=== PATIENT | male | born 1975 | race Caucasian/White ===

== ENCOUNTER 2017-06-11 16:14 | Inpatient (IN) | payer OTHER ==
[~2017-06-11] VITALS: Ht 177.8 cm; Wt 84.8 kg
[2017-06-11 16:26] VITALS: BP 144/79
--- NOTE | 2017-06-11 16:30 | NUR ---
PT AA&OX4 WITH EVEN AND STEADY GAIT; RR EVEN AND UNLABORED AT THIS TIME; PT TO LOBBY AWAITING OPEN BED.
[2017-06-11 17:03] LABS: BASOPHILS # (AUTO) 0.2 K/uL (0.00-0.22); BASOPHILS % (AUTO) 2.4 % (0.0-2.0); EOSINOPHILS # (AUTO) 0.1 K/uL (0-0.4); HEMATOCRIT 44.9 % (36-52); HEMOGLOBIN 14.9 g/dL (12.0-18.0); LYMPHOCYTES # (AUTO) 1.3 K/uL (2.0-11.5); LYMPHOCYTES % (AUTO) 15.2 % (20.5-51.1); MEAN CORPUSCULAR HEMOGLOBIN 29 pg (27-31); MEAN CORPUSCULAR HGB CONC 33 g/dL (33-37); MEAN CORPUSCULAR VOLUME 88 fL (80-94); MONOCYTES # (AUTO) 0.7 K/uL (0.8-1.0); MONOCYTES % (AUTO) 8.1 % (1.7-9.3); NEUTROPHILS % (AUTO) 73.3 % (42.2-75.2); PLATELET COUNT (AUTO) 265 K/uL (140-450); RED BLOOD CELL COUNT(AUTO) 5.11 MIL/uL (4.20-6.10); RED CELL DISTRIBUTION WIDTH 12.3 % (11.6-13.7); WHITE BLOOD COUNT (AUTO) 8.3 K/uL (4.8-10.8)
[2017-06-11 17:18] LABS: CREATININE 1.1 mg/dL (0.7-1.3)
[2017-06-11 17:23] LABS: ALBUMIN 4.1 g/dL (3.4-5.0); TOTAL BILIRUBIN 0.5 mg/dL (0.0-1.0)
--- NOTE | 2017-06-11 17:30 | NUR ---
PT TAKEN TO BED 2.
--- NOTE | 2017-06-11 17:45 | NUR ---
41m bib with c/o mild sob with chest pain since 1800 last night. Chest pain is desribed as 3/10 on pain scale, tightness, intermittent, non provoked, and "at times" radiates to left upper arm. Pt sts cp and sob began after running 3 mile run. Pt denies any nausea, fever, or cough. Pt is aox4 with steady gait. RR are even and unlabored. Pt positioned to comfort, bed down. NAD. Awaiting radiology results. Awaiting er md primary eval. Will continue to monitor.
[2017-06-11] MEDS ORDERED: ASPIRIN 81 MG TAB.CHEW PO ONE (18:10)
[2017-06-11] MEDS ORDERED: NITROGLYCERIN 0.4 MG TAB SL ONE (18:10)
[2017-06-11] MEDS: NACL 0.9% 1,000 ML IV SCH (18:22)
[2017-06-11] MEDS ORDERED: NITROGLYCERIN 0.4 MG TAB SL PRN (18:25)
[2017-06-11] MEDS ORDERED: ACETAMINOPHEN 325 MG TAB PO PRN (18:25)
[2017-06-11] MEDS ORDERED: HYDROcodone/APAP 7.5/325 MG 1 TAB PO PRN (18:25)
[2017-06-11] MEDS ORDERED: ONDANSETRON 4 MG/2 ML VIAL IVP PRN (18:25)
--- NOTE | 2017-06-11 18:50 | NUR ---
Patient will be admitted to care of [facility]. Admited to Tele. Will go to room 106b. Belongings list completed. Bedside report to Maria G KABA.
[2017-06-11 18:58] LABS: PROTHROMBIN TIME 10.4 secs (10.8-13.4)
[2017-06-11 19:04] LABS: APPEARANCE,URINE CLEAR (CLEAR); BILIRUBIN,URINE NEGATIVE (NEGATIVE); BLOOD, URINE NEGATIVE (NEGATIVE); COLOR,URINE YELLOW (YELLOW); LEUKOCYTE ESTERASE ,URINE NEGATIVE (NEGATIVE); NITRITE, URINE NEGATIVE (NEGATIVE); PH,URINE 5.5 (5.0-9.0); UGLUCOSE NEGATIVE (NEGATIVE)
[2017-06-11 19:10] LABS: CHOL/HDL RATIO 3.3 (1-4.5); FREE T4 (FREE THYROXINE) 0.7 ng/dL (0.76-1.46); THYROID STIMULATING HORMONE 1.8 uIU/mL (0.34-3.74)
[2017-06-11 19:30] VITALS: BP 121/71
--- NOTE | 2017-06-11 19:30 | NUR ---
PATIENT REPORT RECEIVED FROM MORNING NURSE AT BEDSIDE. PATIENT IS AWAKE, ALERT AND ORIENTED. NO SIGNS AND SYMPTOMS OF DISTRESS NOTED. NO COMPLAINTS OF PAIN AT THIS TIME. PATIENT'S AT BEDSIDE. PATIENT IS ON ROOM AIR. NO SOB NOTED. SKIN IS INTACT. IV SITE NOTED ON LEFT FOREARM. PLAN OF CARE DISCUSSED WITH PATIENT. PATIENT VERBALIZED UNDERSTANDING. BED IN LOWEST POSITION, SIDE RAILS UP AND CALL LIGHT WITHIN REACH. WILL CONTINUE TO MONITOR.
--- NOTE | 2017-06-11 19:35 | NUR ---
PATIENT SEEN BY DR. CARNES. PATIENT'S PRESENT
[2017-06-11] MEDS ORDERED: ALBUTEROL SULFATE/IPRATROPIU 3 ML SOL IH PRN (19:55)
[2017-06-11] MEDS ORDERED: ATORVASTATIN 20 MG TAB PO SCH (21:00)
[2017-06-11] MEDS: DOCUSATE SODIUM 100 MG GELCAP PO SCH (21:00)
[2017-06-11] MEDS: METOPROLOL 25 MG TAB PO SCH (21:13)
--- NOTE | 2017-06-11 21:30 | NUR ---
ADMINISTERED MEDICATIONS ORDERED. GAVE EDUCATION ON SIDE EFFECTS AND INDICATIONS OF MEDICATIONS. PATIENT VERBALIZED UNDERSTANDING
--- NOTE | 2017-06-11 22:00 | NUR ---
CHECKED ON PATIENT. PATIENT IS RESTING IN BED ON HIS PHONE. NO SYMPTOMS OF DISTRESS NOTED. WILL CONTINUE TO MONITOR.
[2017-06-12] VITALS: BP 106/65
--- NOTE | 2017-06-12 | NUR ---
PATIENT AMBULATED TO RESTROOM. PATIENT STEADY. NO SOB NOTED. NO COMPLAINTS OF DIZZINESS AT THIS TIME.
[2017-06-12] MEDS ORDERED: INFLUENZA VIRUS VACCINE QUAD 0.5 ML SYR IMVAC PRN (01:45)
--- NOTE | 2017-06-12 02:00 | NUR ---
CHECKED ON PATIENT. PATIENT IS ASLEEP. NO SIGNS AND SYMPTOMS OF DISTRESS NOTED. BREATHING EVEN AND UNLABORED. BED IN LOWEST CONDITION, SIDE RAILS UP AND CALL LIGHT WITHIN REACH. WILL CONTINUE TO MONITOR.
[2017-06-12 03:09] LABS: HEMATOCRIT 42.3 % (36-52); HEMOGLOBIN 13.9 g/dL (12.0-18.0); MEAN CORPUSCULAR HEMOGLOBIN 29 pg (27-31); MEAN CORPUSCULAR HGB CONC 33 g/dL (33-37); MEAN CORPUSCULAR VOLUME 88 fL (80-94); PLATELET COUNT (AUTO) 234 K/uL (140-450); RED BLOOD CELL COUNT(AUTO) 4.81 MIL/uL (4.20-6.10); RED CELL DISTRIBUTION WIDTH 12.6 % (11.6-13.7); WHITE BLOOD COUNT (AUTO) 7.8 K/uL (4.8-10.8)
[2017-06-12 03:19] LABS: ANION GAP 10.1 (8-16); CREATININE 1.1 mg/dL (0.7-1.3); POTASSIUM 4.1 mmol/L (3.5-5.1)
[2017-06-12 03:23] LABS: MAGNESIUM 2.1 mg/dL (1.8-2.4); PHOSPHORUS 4.8 mg/dL (2.5-4.9)
[2017-06-12 04:00] VITALS: BP 106/66
[2017-06-12 07:02] LABS: EOSINOPHILS % (MANUAL) 1 % (0-4); LYMPHOCYTES % (MANUAL) 33 % (20-46); MONOCYTES % (MANUAL) 9 % (5-12)
--- NOTE | 2017-06-12 07:21 | NUR ---
PATIENT REPORT GIVEN TO MORNING NURSE AT BEDSIDE. PATIENT IS IN STABLE CONDITION
--- NOTE | 2017-06-12 07:22 | NUR ---
PATIENT SITTING IN BED COMFORTABLY. NO DISTRESS NOTED. DENIES ANY PAIN AT THIS TIME. RESPIRATIONS EVEN, UNLABORED, ON ROOM AIR. AAOX4, CALM, COOPERATIVE, SKIN COLOR APPROPRIATE TO ETHNICITY, WARM TO TOUCH. SKIN IS INTACT. IV SITE INTACT, PATENT, AND INFUSING IVF PER ORDERS. ABDOMEN SOFT, NON-DISTENDED. LUNGS CTA ON ALL LOBES. REVIEWED PLAN OF CARE WITH PATIENT. PATIENT VERBALIZED UNDERSTANDING. SAFETY MEASURES IN PLACE, CALL LIGHT WITHIN REACH. WILL CONTINUE TO MONITOR.
[2017-06-12 08:00] VITALS: BP 110/72
[2017-06-12] MEDS: DOCUSATE SODIUM 100 MG GELCAP PO SCH (08:33)
[2017-06-12] MEDS: METOPROLOL 25 MG TAB PO SCH (08:34)
--- NOTE | 2017-06-12 08:35 | NUR ---
PATIENT SITTING IN BED TALKING WITH FAMILY MEMBERS AT BEDSIDE. NO DISTRESS NOTED. DENIES ANY PAIN. SCHEDULED MEDICATIONS DUE GIVEN. SAFETY MEASURES IN PLACE, CALL LIGHT WITHIN REACH. WILL CONTINUE TO MONITOR.
[2017-06-12] MEDS ORDERED: PANTOPRAZOLE 40 MG TABEC PO SCH (09:00)
[2017-06-12] MEDS ORDERED: LISINOPRIL 5 MG TAB PO SCH (09:00)
[2017-06-12] MEDS ORDERED: ASPIRIN 81 MG TAB.CHEW PO SCH (09:00)
--- NOTE | 2017-06-12 09:10 | NUR ---
PATIENT HAS BEEN SCREENED AND CATEGORIZED LOW NUTRITION RISK. PATIENT WILL BE SEEN WITHIN 7 DAYS OF ADMISSION. 06/17/[address]
--- NOTE | 2017-06-12 11:00 | NUR ---
PATIENT SITTING IN BED TALKING WITH FAMILY MEMBERS AT BEDSIDE. NO DISTRESS NOTED. DENIES ANY PAIN. SAFETY MEASURES IN PLACE, CALL LIGHT WITHIN REACH. WILL CONTINUE TO MONITOR.
--- NOTE | 2017-06-12 13:00 | NUR ---
PATIENT LYING IN BED ON THE PHONE. FAMILY MEMBERS AT BEDSIDE. DENIES ANY PAIN. NO DISTRESS NOTED. WILL CONTINUE TO MONITOR.
--- NOTE | 2017-06-12 13:15 | NUR ---
CM NOTE PER [employer] INFORMATION CLERK DEEDEE, PATIENT HAS INSURANCE FROM THE [facility]. I RECEIVED A CALL FROM [employer] [facility] [employer] [facility] # [phone] (FAX# [phone]) AND I GAVE HIM A VERBAL CLINICAL UPDATE ON THE PATIENT AND INFORMED HIM OF THE DISCHARGE ORDER FOR TODAY. PER [employer], THERE IS NO NEED TO FAX ANY CLINICAL REVIEWS BECAUSE THE PATIENT HAS NOT BEEN SEEN AT THE [facility] BEFORE. PER [employer], HE HAS PUT IN HIS NOTES AND THAT IS ALL THEIR DEPT WILL NEED AT THIS TIME.
[2017-06-12] MEDS: NACL 0.9% 1,000 ML IV SCH (14:22)
--- NOTE | 2017-06-12 15:30 | NUR ---
PATIENT SITTING IN BED WITH FAMILY MEMBERS AT BEDSIDE. NO DISTRESS NOTED. DENIES ANY PAIN. DISCHARGE INSTRUCTIONS/EDUCATION PROVIDED TO PATIENT/FAMILY IN PREFERRED LANGUAGE OF [place], FOLLOW-UP VISITS, NEW/CHANGED MEDICATIONS REGIMEN AND DISEASE PROCESS/PREVENTION OF CHEST PAIN. ANSWERED ALL OF PATIENT'S/FAMILY QUESTIONS REGARDING DISCHARGE AND FOLLOW-UP WITH DR. [facility]. PATIENT/FAMILY VERBALIZED COMPLETE UNDERSTANDING. ALL BELONGINGS WITH PATIENT. ID BANDS REMOVED. IV SITE REMOVED WITH MINIMAL BLOOD AND LUMEN COMPLETELY INTACT. AWAITING FOR PATIENT TO GET DRESSED TO ESCORT PATIENT DOWN TO LOBBY. PATIENT ABLE TO AMBULATE WITH STEADY GAIT. REFUSES WHEELCHAIR ESCORT DOWN TO LOBBY.
--- NOTE | 2017-06-12 15:45 | NUR ---
ESCORTED PATIENT DOWN TO LOBBY. PATIENT ABLE TO AMBULATE WITH STEADY GAIT, REFUSED WHEELCHAIR DOWN TO LOB. PATIENT DISCHARGED AT THIS TIME TO HOME VIA PRIVATE VEHICLE IN STABLE CONDITION.
== END 2017-06-12 15:45 | disposition home or self-care (01) | DRG 206 ==
LOC: MED 16:14 → MTU 18:22
PROVIDERS: ADMIT Family Medicine Sports Medicine; ATTEND Family Medicine Sports Medicine
DX: M94.0 Chondrocostal junction syndrome [Tietze] (principal); E78.5 Hyperlipidemia, unspecified; I10 Essential (primary) hypertension; Z82.49 Family history of ischemic heart disease and other diseases of the circulatory system; Z83.49 Family history of other endocrine, nutritional and metabolic diseases; Z87.891 Personal history of nicotine dependence
CPT/HCPCS: 36415; 71045; 80048; 80053; 81003; 83036; 83735; 83880; 84100; 84439; 84443; 84484; 85025; 85610; 85730; 87081; 87086; 90658; 93005; 99285; J7030